=== PATIENT | female | born 1935 | race Caucasian/White ===

== ENCOUNTER 2019-10-04 10:29 | Emergency (ER) | payer MEDICARE ==
[~2019-10-04] VITALS: Ht 157.5 cm; Wt 63.5 kg
[2019-10-04 11:06] VITALS: BP_SYST 144
--- NOTE | 2019-10-04 11:24 | NUR ---
Patient to ER bed 4 to gown for evaluation. Side rails up. Report given to Nichole SHEARER.
--- NOTE | 2019-10-04 11:26 | NUR ---
Patient brought in by ambulance in the ED post mechanical fall witnessed by the pie filling mixer's. Denied any fevers, chills, or chest pain. Denied any head injury or loss of consciousness. Patient is awake and oriented x2, respirations even and unlabored, speaking in full sentences, ambulating with a steady gait. VSS, pain level 0/10. Informed of wait time. Friend at bedside. Instructed to notify ED staff of any changes in condition or worsening of symptoms. Patient verbalized understanding.
--- NOTE | 2019-10-04 11:40 | NUR ---
Son at bedside.
--- NOTE | 2019-10-04 11:44 | NUR ---
Patient refusing XR and Lab draw. aware.
--- NOTE | 2019-10-04 11:50 | NUR ---
Patient is refusing all interventions per sonNacho.
--- NOTE | 2019-10-04 12:00 | NUR ---
Patient's son informed us that his mom wants to leave AMA. aware.
--- NOTE | 2019-10-04 12:13 | NUR ---
Patient left AMA. AMA form signed. aware.
== END 2019-10-04 12:13 | disposition left against medical advice (07) ==
LOC: SED 10:29
DX: F03.90 Unspecified dementia, unspecified severity, without behavioral disturbance, psychotic disturbance, mood disturbance, and anxiety (principal); I10 Essential (primary) hypertension
CPT/HCPCS: 99283

== ENCOUNTER 2020-08-07 03:45 | Emergency (ER) | payer MEDICARE, SELFPAY ==
[~2020-08-07] VITALS: Ht 165.1 cm; Wt 49.9 kg
[2020-08-07 03:50] VITALS: BP_SYST 164
--- NOTE | 2020-08-07 03:50 | NUR ---
Patient to ER bed 6 to gown for evaluation. Side rails up.
--- NOTE | 2020-08-07 03:55 | NUR ---
ER DR. JARA AT THE BEDSIDE EVALUATING PT
--- NOTE | 2020-08-07 04:00 | NUR ---
PT BIBA FROM HOME, SON REPORTS THAT SHE FELL FROM BED AND WAS FOUND ON THE FLOOR NEXT TO BED. 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 PT IS AAOX1 WITH HX OF DEMENTIA. PT DENIES ANY PAIN AT THIS TIME. V/S STABLE
--- NOTE | 2020-08-07 04:45 | NUR ---
# 20 gauge angiocath placed to LFA. Use of asceptic technique. Opsite placed over site. Blood return noted. Blood for lab drawn from site. Flushed with 10 cc of normal saline. No evidence of infiltration noted. Patient tolerated well.
--- NOTE | 2020-08-07 04:54 | NUR ---
Patient transported to radiology via GURNEY, accompanied by STAFF.
[2020-08-07 04:58] LABS: BASOPHILS % (AUTO) 0.3 % (0.0-2.0); EOSINOPHILS # (AUTO) 0.1 K/uL (0.0-0.4); EOSINOPHILS % (AUTO) 1.3 % (0.0-4.0); HEMATOCRIT 41.1 % (36-48); HEMOGLOBIN 13.9 g/dL (12.0-16.0); LYMPHOCYTES # (AUTO) 1.2 K/uL (1.0-5.5); LYMPHOCYTES % (AUTO) 12.6 % (20.5-51.5); MEAN CORPUSCULAR HEMOGLOBIN 31 pg (27-31); MEAN CORPUSCULAR HGB CONC 34 % (32-36); MEAN CORPUSCULAR VOLUME 93 fL (79.0-98.0); MONOCYTES # (AUTO) 0.6 K/uL (0.0-1.0); MONOCYTES % (AUTO) 6.8 % (1.7-9.3); NEUTROPHILS # (AUTO) 7.5 K/uL (1.8-7.7); PLATELET COUNT (AUTO) 243 K/uL (130-430); RED BLOOD CELL COUNT(AUTO) 4.43 MIL/uL (4.2-6.2); RED CELL DISTRIBUTION WIDTH 13.1 % (9.0-15.0); WHITE BLOOD COUNT (AUTO) 9.5 K/uL (4.8-10.8)
[2020-08-07 05:11] LABS: ANION GAP 8 (5-15); CHLORIDE 98 mmol/L (98-107); CREATININE 0.77 mg/dL (0.55-1.30); GLUCOSE 161 mg/dL (70-99); POTASSIUM 3.8 mmol/L (3.5-5.1); SODIUM SERUM 135 mmol/L (136-145); UREA NITROGEN, BLOOD 13 mg/dL (8-21)
--- NOTE | 2020-08-07 05:20 | NUR ---
Note undone in EDM - 08/07/20 at 0725 by [email or web address] # 20 gauge angiocath placed to LAC. Use of asceptic technique. Opsite placed over site. Blood return noted. Flushed with 10 cc of normal saline. No evidence of infiltration noted. Patient tolerated well.
[2020-08-07 05:22] LABS: ALANINE AMINOTRANSFERASE 28 U/L (12-78); ALBUMIN 3.3 g/dL (3.4-4.8); ASPARTATE AMINOTRANSFERASE 28 U/L (10-37); TOTAL BILIRUBIN 0.5 mg/dL (0.0-1.0)
[2020-08-07] MEDS ORDERED: hydrALAZINE HCL 20 MG/ML VIAL IVP ONE ×2 (05:45→08:00)
--- NOTE | 2020-08-07 06:15 | NUR ---
SON LITA CALLED TO NOTIFY OF NEED FOR ADMISSION/TRANSFER TO [facility], NO ANSWER. LEFT VM
--- NOTE | 2020-08-07 06:18 | NUR ---
COVID SWAB DONE AND SENT TO LAB
[2020-08-07] MEDS ORDERED: LORazepam 2 MG/ML VIAL IVP ONE (07:00)
--- NOTE | 2020-08-07 07:00 | NUR ---
PT RIPPED IV OUT. IV INTACT. NO ACTIVE BLEEDING. PRESSURE BANDAGE APPLIED
--- NOTE | 2020-08-07 07:20 | NUR ---
# 20 gauge angiocath placed to LAC. Use of asceptic technique. Opsite placed over site. Blood return noted. Flushed with 10 cc of normal saline. No evidence of infiltration noted. Patient tolerated well. Addendum: 08/07/20 at 0725 by [email or web address] # 20 gauge angiocath placed to LFA. Use of asceptic technique. Opsite placed over site. Blood return noted. Flushed with 10 cc of normal saline. No evidence of infiltration noted. Patient tolerated well.
--- NOTE | 2020-08-07 07:25 | NUR ---
REPORT GIVEN TO JANKI ALMARAZ FOR CONTINUING CARE
[2020-08-07 07:32] LABS: BILIRUBIN,URINE NEGATIVE (NEGATIVE); CLARITY/URINE CLEAR (CLEAR); COLOR,URINE YELLOW (YELLOW); GLUCOSE,URINE NEGATIVE (NEGATIVE); KETONES,URINE NEGATIVE (NEGATIVE); LEUKOCYTE ESTERASE ,URINE NEGATIVE (NEGATIVE); NITRITE, URINE NEGATIVE (NEGATIVE); PROTEIN URINE NEGATIVE (NEGATIVE); UROBILINOGEN,URINE 0.2 (0.2-1.0)
[2020-08-07 07:42] LABS: BLOOD, URINE TRACE (NEGATIVE)
[2020-08-07 07:44] LABS: BACTERIA,URINE RARE /HPF (None Seen); MUCUS,URINE 1+ /LPF (None Seen); RBC,URINE 0-3 /HPF (0-3); WBC,URINE 0-3 /HPF (0-3)
--- NOTE | 2020-08-07 08:22 | NUR ---
Pt agitated, blood pressure elevated. Pt AOx1, able to track with eyes, does not follow commands
[2020-08-07] MEDS ORDERED: LABETALOL HCL 250 MG in NS 200 ML IV ONE (08:30)
--- NOTE | 2020-08-07 08:49 | NUR ---
Labetalol drip increased to 1mg/min, current BP 176/87 P 99 O2sat 99
--- NOTE | 2020-08-07 08:55 | NUR ---
Labetalol drip increased to 2mg BP 192/99 P 102 O2 sat 95% pt appears calm and no distress noted at this time
--- NOTE | 2020-08-07 09:00 | NUR ---
Labetalol drip increased to 3mg/min BP 179/85 P 94 O2 sat 99% pt resting, calm, appears comfortable at this time.
--- NOTE | 2020-08-07 09:05 | NUR ---
Pt BP 118/57 P 57 O2 sat 100 comfortable at this time.
--- NOTE | 2020-08-07 09:10 | NUR ---
Labetalol drip increased to 4mg/min BP 154/124 P 81 O2 sat 99% pt asleep at this time
--- NOTE | 2020-08-07 09:20 | NUR ---
Labetalol drip increased to 5mg/min BP 159/93 P 82 O2 sat 99% pt resting in [facility].
[2020-08-07 09:41] VITALS: BP_SYST 159
--- NOTE | 2020-08-07 09:43 | NUR ---
Patient to be transferred to [place]. Is being transferred due to higher level of care. Receiving facility has accepting physician and available space. ER physician has signed transfer form. Patient or responsible constitution party has agreed to transfer and signed form. Patient belongings inventoried and will be sent with patient. Copy of nursing notes, lab reports, EKG, Physicians Orders and X-rays to be sent with patient. Report called to receiving RN at receiving facility. Receiving physician is DR Persaud. [facility] ambulance service has been called for transfer.
== END 2020-08-07 09:41 | disposition short-term general hospital (02) ==
LOC: SED 03:45
DX: S06.5X0A Traumatic subdural hemorrhage without loss of consciousness, initial encounter (principal); I10 Essential (primary) hypertension; Z20.828 Contact with and (suspected) exposure to other viral communicable diseases; W06.XXXA Fall from bed, initial encounter; Y93.89 Activity, other specified; Y92.89 Other specified places as the place of occurrence of the external cause; Y99.8 Other external cause status
CPT/HCPCS: 36415; 70450; 71045; 72125; 80053; 81000; 85025; 87426; 93005; 96365; 96375; 96376; 99285; J0360; J2060; J3490; J7050; 76376